=== PATIENT | male | born 1970 | race Caucasian/White ===

== ENCOUNTER 2018-05-23 12:37 | Day surgery (SDC) | payer BC ==
[~2018-05-23 12:37] MED LIST: ACETAMINOPHEN 1,000 MG/100 ML BTL IV ONE; CEFAZOLIN 2 Gram 2 GM/50 ML BAG IVPB ONE
[2018-05-23] MEDS ORDERED: DEXAMETHASONE 4 MG/ML 1ML VIAL IVP ONE ×2 (12:38)
[2018-05-23] MEDS ORDERED: SUGAMMADEX SODIUM 200 MG/2 ML VIAL IV ONE (12:38)
[2018-05-23] MEDS ORDERED: GLYCOPYRROLATE 0.2 MG/ML ML IV ONE (12:38)
[2018-05-23] MEDS ORDERED: MIDAZOLAM HCL 2MG/2ML VIAL IV ONE (12:38)
[2018-05-23] MEDS ORDERED: FENTANYL PF 100MCG/2ML VIAL IV ONE (12:38)
[2018-05-23] MEDS ORDERED: ROPIVACAINE HCL (NAROPIN) /PF 5MG/ML 20ML VIAL IV ONE (12:38)
[2018-05-23] MEDS ORDERED: DESFLURANE 240 ML BTL INH ONE (12:38)
[2018-05-23] MEDS ORDERED: LIDOCAINE 2% MDV (20MG/ML) 20ML VIAL IV ONE (12:38)
[2018-05-23] MEDS ORDERED: ROCURONIUM BROMIDE 50MG/5ML VIAL IV ONE (12:38)
[2018-05-23] MEDS ORDERED: SUCCINYLCHOLINE 20 MG/ML 10ML IVP ONE (12:38)
[2018-05-23] MEDS ORDERED: ONDANSETRON HCL IV 4 MG/2 ML VIAL IVP ONE (12:38)
[2018-05-23] MEDS ORDERED: EPINEPHRINE 1 MG/ML AMPUL SQ ONE (12:38)
[2018-05-23] MEDS ORDERED: BUPIVACAINE 0.5% W/EPI MPF 30 ML VIAL IVP ONE (12:38)
[2018-05-23] MEDS ORDERED: NEOSTIGMINE 1 MG/1 ML,10ML VIAL IV ONE (12:38)
--- NOTE | 2018-05-26 23:52 | Operative Note ---
DATE OF SURGERY: 05/23/2018. PREOPERATIVE DIAGNOSES: Right shoulder persistent pain, biceps tendon dysfunction status post SLAP lesion repair and partial-thickness rotator cuff repair. POSTOPERATIVE DIAGNOSES: Right shoulder persistent pain, biceps tendon dysfunction status post SLAP lesion repair and partial-thickness rotator cuff repair. PROCEDURE: 1. Diagnostic arthroscopy. 2. Arthroscopic acromioplasty with subacromial decompression. 3. Arthroscopic excision of the distal clavicle and AC joint, 1 cm. Arthroscopic extensive debridement of the labrum, removal of sutures in partial- thickness repair and labrum. 4. Arthroscopic biceps tenodesis. SURGEON: Keyur Goldberg M.D. ANESTHESIA: Interscalene block and general. Cristobal Moreno CRNA. COMPLICATIONS: None. ESTIMATED BLOOD LOSS: Minimal. OPERATIVE FINDINGS: Loose sutures from the partial-thickness repair and SLAP lesion repair, some fraying and degeneration of the biceps tendon and circumferentially around the labrum as well. Intact articular and bursal surface rotator cuff. AC joint arthrosis, subacromial adhesions, and bursitis. COMPONENTS PLACED: [employer] 4.75 mm Regenesorb anchor each with two #2 Ultrabraid sutures. INDICATIONS FOR OPERATION: This is a 48-year-old male who has had persistent pain and dysfunction in his shoulder for several years. He is status post SLAP lesion repair and partial-thickness rotator cuff repair done by myself years ago. He has noted some persistent pain now anteriorly in the biceps area diagnosed with irritation in the superior labrum and biceps tendon sutures and plan on doing debridement and remove the sutures, and biceps tenodesis. I explained the risks and benefits of surgery in detail for the diagnoses and procedures including but not limited to infection, nerve injury, vessel injury, persistent pain, stiffness, numbness and tingling in his shoulder, re-tear of his rotator cuff, need for further procedures and all his questions were answered. Rehab and course were outlined and he agreed to proceed. PROCEDURE: The patient was brought to the O.R. and placed in the beach chair position for the proper surgery. General endotracheal anesthesia was induced and his right upper extremity and shoulder were prepped and draped in sterile fashion. The right shoulder was prepped again with ChloraPrep after it was draped. Intraoperative time-out was performed. The glenohumeral joint, subacromial space, and AC joint were injected with 0.5% Marcaine with Epinephrine. A standard posterior arthroscopic portal was established 2.0 cm inferior and 1.0 cm medial to the posterolateral corner of the acromion. An anterior portal was established through the rotator interval under direct visualization and diagnostic arthroscopy performed. The biceps tendon was frayed and degenerated. There was some loose suture in the lower and upper portion of the biceps anchoring point. This was removed with a shaver and we plan on doing biceps tenodesis, as stated previously. The superior and posterior superior labrum were frayed. The axial recess was normal. The glenohumeral head articular cartilage was otherwise normal. The undersurface of the rotator cuff was thoroughly inspected. The partial- thickness tear was completely healed and there was loose suture there from the previous repair. Again, that was removed. The upper biceps groove was then debrided with a shaver to bleeding bone in preparation for biceps tenodesis. The anterior inferior labrum and glenohumeral ligament were normal. The subscapularis tendon was normal. Next, we established an accessory anterior portal and proceeded with the biceps tenodesis. We inserted the disposable cannula in the anterior portal and inserted the punch tap at the upper bicipital groove, inserted the anchor and buried beneath the surface of bone. Next, we passed through the anterior portable into the biceps, grabbing one limb of the suture, bringing it around through, created a loop, released the loop, placed the penetrator back through the loop grasping the same suture and pulling it through the loop effectively creating a lasso effect on the medial edge of the biceps. We did the same exact thing on the lateral edge of the biceps with the other suture set and using the accessory anterior lateral portal. Next, we then tied those two suture sets down through the anterior portal using the sliding Revo knot and backed up with three reverse hitch alternating post throws. This secured the biceps nicely. We then cut it and released it from its attachment point and debrided both edges. Next, the anterior and posterior subacromial portals were established. The tissue ablator was inserted in the anterior subacromial portal and subacromial bursectomy was performed outlining the anterior lateral edge of the acromion. We released the coracoacromial ligament and completely opened up the inferior AC joint capsule. Next, the lateral portal was established off the posterior margin of the AC joint. We used a 5.5 mm anthony. The anthony was inserted and we took off strips of bone working from lateral to medial and anterior to posterior, converting the type II acromion to a planar surface. We used a rasp to smooth the subacromial surface and verified it was flat with a probe from the posterior portal. Next, we inserted the anthony in the anterior portal, burred down to the medial acromial facet, resected the distal clavicle 1 cm. We made small stab incision superior to the AC joint and inserted a shaver there and smoothed both bony surfaces to verify the AC joint was completely free of any bony impingement or bony fragments. Next, we resected the bursa around the periphery of the rotator cuff. We inspected that and that was intact. This completed our procedures. Scope and equipment were removed. The incision was covered with Steri-Strips and the shoulder was bolused with 0.5% Marcaine with Epinephrine and Exparel. Sterile dressings applied and UltraSling. He tolerated the procedures well. No intraoperative complications. All sponge, needle, and blade counts correct. Recovery room stable, neurovascularly intact. He will be discharged as an outpatient and follow-up in two weeks. cc: Dr. Jose De Jesus Alegria, [place], [place] JOB NUMBER: [id number] [facility]
== END 2018-05-23 17:00 | disposition home or self-care (01) ==
LOC: SUR 12:37
PROVIDERS: ATTEND Orthopaedic Surgery
DX: M25.511 Pain in right shoulder (principal); S46.111A Strain of muscle, fascia and tendon of long head of biceps, right arm, initial encounter; F17.210 Nicotine dependence, cigarettes, uncomplicated
CPT/HCPCS: 29807; 29826; 29824; 29828; 29823; 01630; J2405; J3010; J0690; J2795; J3490; C1713; J0171; J0330; J2710